=== PATIENT | female | born 1955 | race Caucasian/White ===

== ENCOUNTER → 2017-08-11 | Outpatient (CLI) | payer BC ==
[~2017-08-11] MED LIST: AZO MENOPAUSE1 X PO; B COMPLEX #11 TA1 PO; DUO-KAPS1 CAP PO; ESTROVEN PO; GINKO BILOBA60 MG PO; LEXAPRO 5MG5 MG PO; MELATONIN5 M1 SL; MULTIPLE VITAMI1 TA5 PO; NATURAL E400 IU PO; OSTEO-BI-FLEX 21 TAB PO; PRINIVIL10 MG PO; TURMERIC500 MG PO; VITAMIN E100 I3 PO; ZESTRIL 5MG5 MG PO
== END ==
LOC: MC.RAD 08:33
DX: Z12.31 Encounter for screening mammogram for malignant neoplasm of breast (principal)